=== PATIENT | female | born 1970 | race African-American/Black ===

== ENCOUNTER 2021-07-22 17:13 | Emergency (ER) | payer OTHER ==
[~2021-07-22] VITALS: Ht 157.5 cm; Wt 72.6 kg
[~2021-07-22 17:13] MED LIST: ACETAMINOPHEN325 M1 PO; BENADRYL25 MG PO; BENTYL10 MG PO; BUSPAR 5 MG TABL5 M1; CATAPRES-TTS 10.1 MG TOP; COMPAZINE10 MG PO; COMPAZINE25 MG RECTAL; ENDOCET 5-3251 EACH PO; LISINOPRIL10 MG PO; LORAZEPAM 0.50.5 MG; LORAZEPAM 1 MG T1 M1 PO; METOCLOPRAMIDE10 MG PO; NORCO 5-325 TA1 EACH PO; ONDANSETRON ODT8 MG PO; OXYCODONE HCL15 MG PO; OXYCODONE HCL5 M1 PO; PERCOCET 5-3251 EACH PO; PHENERGAN 25 MG25 MG; PHENERGAN50 MG RC; PRILOSEC 20 MG20 MG PO; REGLAN 10 MG TA10 M1 PO; TRANSDERM-SCO1 PATC1 TOP; VIVELLE-DOT1 EAC1 TRANSDERM; ZOFRAN4 MG PO
[2021-07-22 20:11] LABS: ABSOLUTE NEUTROPHILS 5.6 thou/uL (1.4-8.2); BASOPHILS 0.7 % (0.0-2.0); EOSINOPHILS 0.5 % (0.0-3.0); HEMATOCRIT 43.5 % (37.0-47.0); HEMOGLOBIN 14.3 gm/dL (12.0-15.0); MCH 24.6 pg (26.0-34.0); MCHC 32.8 g/dL (28.0-37.0); MCV 74.9 fL (80.0-100.0); PLATELET COUNT 319 thou/uL (150-400); POLYS 59.8 % (36.0-66.0); RBC 5.81 mil/uL (4.20-5.00); RDW 17.5 % (10.5-14.5); WBC 9.3 thou/uL (4.0-11.0)
[2021-07-22 21:02] LABS: CALCIUM 9.6 mg/dL (8.5-10.1); CREATININE 0.6 mg/dL (0.6-1.0); TOTAL BILIRUBIN 0.5 mg/dL (0.2-1.0); TOTAL PROTEIN 7.7 g/dL (6.4-8.2)
[2021-07-22 21:14] LABS: POTASSIUM 2.9 mmol/L (3.5-5.1)
[2021-07-23] MEDS ORDERED: ZOFRAN ODT4 MG PO (00:06)
[2021-07-23 01:35] VITALS: BP 196/108
--- NOTE | 2021-07-24 13:23 | EKG ---
[place] [address] [facility] [employer] 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 : 1970 Requested By: Jeri Martinez Order Number: [id number] MD: Bharathi Bray Measurements Intervals [place] Rate: 66 P: 17 MO: 149 QRS: -51 QRSD: 116 T: 33 QT: 455 QTc: 477 Interpretive Statements Sinus rhythm Probable left atrial enlargement Left ventricular hypertrophy Compared to ECG 07/11/2012 11:50:12 Left ventricular hypertrophy now present Left-axis deviation no longer present Poor R-wave progression no longer present T-wave abnormality no longer present Electronically Signed On 07-24-2021 13:23:43 [employer] by Bharathi Bray [email or web address] <ELECTRONICALLY SIGNED> By: Bharathi Bray MD, [facility] 07/24/21 1323 [id number] 1711 Bharathi Bray MD, [facility] /EPI
== END 2021-07-23 01:37 | disposition home or self-care (01) ==
LOC: ER 17:13
PROVIDERS: Nurse Practitioner
DX: R07.89 Other chest pain (principal); Z20.822 Contact with and (suspected) exposure to COVID-19; R11.2 Nausea with vomiting, unspecified; Z98.51 Tubal ligation status; Z90.710 Acquired absence of both cervix and uterus; Z79.899 Other long term (current) drug therapy; Z88.0 Allergy status to penicillin; Z88.5 Allergy status to narcotic agent